=== PATIENT | male | born 1955 | race Caucasian/White ===

== ENCOUNTER → 2017-03-10 | Outpatient (CLI) | payer OTHER ==
--- NOTE | 2017-03-10 11:06 | DIAGNOSTIC IMAGING REPORT ---
L KNEE 4 OR MORE HISTORY: 61 years-old Male LEFT KNEE PAIN acute left knee pain COMPARISON: Knee radiograph 11/26/2013 TECHNIQUE: AP view of the bilateral knees with sunrise, trochlear and lateral views of the left knee FINDINGS: Mild to moderate medial compartment with mild lateral and patellofemoral compartment osteoarthritis of the left knee. Marginal spurring of the superior pole patella is noted at the quadriceps insertion site. No acute fracture, dislocation or intra-articular loose body identified. No large joint effusion is seen. Mild medial compartment osteoarthritis is also seen within the right knee. IMPRESSION: Degenerative changes as above without acute fracture. The above report was generated using voice recognition software. It may contain grammatical, syntax or spelling errors. Electronically signed by: Massimo Pugh M.D. 03/10/2017 11:05 AM Dictated Date/Time: 03/10/2017 11:02 AM
== END | disposition home or self-care (01) ==
LOC: C.RDSM 13:22
PROVIDERS: ATTEND Physician Assistant
DX: R52 Pain, unspecified (principal); M17.12 Unilateral primary osteoarthritis, left knee

== ENCOUNTER → 2017-07-14 | Outpatient (CLI) | payer OTHER | END | disposition home or self-care (01) | LOC: C.LAB1850 09:53 | PROVIDERS: ATTEND Internal Medicine Pulmonary Disease | DX: R35.1 Nocturia (principal) ==